=== PATIENT | male | born 1955 | race Caucasian/White ===

== ENCOUNTER 2019-09-13 10:44 | Emergency (ER) | payer MEDICARE, OTHER ==
[~2019-09-13] VITALS: Ht 170.2 cm; Wt 88.5 kg
--- OUTSIDE RECORDS SUMMARY | ~2019-09-13 | XMS | Encounter Summary ---
Demographics + + + | Address | [address] | | | [place] [address] | + + + | Home Phone | | + + + | Preferred Language | Unknown | + + + | Marital Status | | + + + | Confucianism Affiliation | Unknown | + + + | Race | Unknown | + + + | Ethnic Group | Unknown | + + + Author + + + | Author | [facility] | | | and [place] | + + + | Organization | [facility] | | | and [place] | + + + | Address | Unknown | + + + | Phone | Unavailable | + + + Support + + +---------+ + | Name | Relationship | Address | Phone | + + +---------+ + | Estrellita Peak | ECON | Unknown | | + + +---------+ + Care Team Providers + +------+ + | Care Jewelry Sales Name | Role | Phone | + +------+ + | Buddy Lynne MD | PCP | | + +------+ + Reason for Referral Diagnostic/Screening (Routine) +--------+--------+ + + + + | Status | Reason | Specialty | Diagnoses / | Referred By | Referred To | | | | | Procedures | Contact | Contact | +--------+--------+ + + + + | Closed | | Radiology | Diagnoses | Em | [facility] | | | | | Other chest | MD Jonh | [address] | | | | | pain Type | [address] | [place], | | | | | 2 diabetes | [address] | [place] | | | | | mellitus | [place], | [address] | | | | | without | [place] [address] | Phone: | | | | | complication | Phone: | [phone] | | | | | , without | [phone] | Fax: | | | | | long-term | Fax: | [phone] | | | | | current use | [phone] | | | | | | of insulin | | | | | | | (HCC) | | | | | | | Procedures | | | | | | | ECHO Stress | | | | | | | Test | | | | | | | Exercise ME | | | | | | | CV STRS TST | | | | | | | XERS&/OR RX | | | | | | | CONT ECG | | | | | | | W/O I&R ME | | | | | | | CARDIAC | | | | | | | STRESS | | | | | | | TST,INTERP/R | | | | | | | EPT ONLY ME | | | | | | | ECHO HEART | | | | | | | XTHORACIC, | | | | | | | STRESS/REST | | | +--------+--------+ + + + + Reason for Visit Diagnostic/Screening (Routine) +--------+--------+ + + + + | Status | Reason | Specialty | Diagnoses / | Referred By | Referred To | | | | | Procedures | Contact | Contact | +--------+--------+ + + + + | Closed | | Radiology | Diagnoses | Em, | [facility] | | | | | Other chest | MD Jonh | [address] | | | | | pain Type | [address] | [place], | | | | | 2 diabetes | [address] | [place] | | | | | mellitus | [place], | [address] | | | | | without | [place] [address] | Phone: | | | | | complication | Phone: | [phone] | | | | | , without | [phone] | Fax: | | | | | long-term | Fax: | [phone] | | | | | current use | [phone] | | | | | | of insulin | | | | | | | (HCC) | | | | | | | Procedures | | | | | | | ECHO Stress | | | | | | | Test | | | | | | | Exercise ME | | | | | | | CV STRS TST | | | | | | | XERS&/OR RX | | | | | | | CONT ECG | | | | | | | W/O I&R ME | | | | | | | CARDIAC | | | | | | | STRESS | | | | | | | TST,INTERP/R | | | | | | | EPT ONLY ME | | | | | | | ECHO HEART | | | | | | | XTHORACIC, | | | | | | | STRESS/REST | | | +--------+--------+ + + + + Encounter Details +--------+ + + + + | Date | Type | Department | Care Team | Description | +--------+ + + + + | 08/15/ | Hospital | [facility] | Jessicaradha Jonh, | Other chest pain; | | 2015 | Encounter | MED CTR ECHO [address] | [address] [facility] | Type 2 diabetes | | | | [address] [place] | [address] [place], | mellitus without | | | | [place] [address] | [place] [address] | complication, | | | | [phone] | [phone] | without long-term | | | | | | current use of | | | | | Tyson Vasquez, | insulin ([facility]) | | | | | Technologist | | +--------+ + + + + Social History + +-------+ +--------+------+ | Tobacco Use | Types | Packs/Day | Years | Date | | | | | Used | | + +-------+ +--------+------+ | Never Assessed | | | | | + +-------+ +--------+------+ + + + | Sex Assigned at | Date Recorded | | | | + + + | Not on file | | + + + + + + + | Job Start Date | Occupation | Industry | + + + + | Not on file | Not on file | Not on file | + + + + + + + + | Travel History | Travel Start | Travel End | + + + + + + | No recent travel history available. | + + documented as of this encounter Plan of Treatment + + +--------+ + + | Name | Type | Priori | Associated Diagnoses | Order Schedule | | | | ty | | | + + +--------+ + + | ECHO Stress Test | Echocardiog | Routin | Other chest pain | 1 Occurrences | | Exercise | steven | e | Type 2 diabetes | starting 08/15/2016 | | | | | mellitus without | until 08/15/2016 | | | | | complication, | | | | | | without long-term | | | | | | current use of | | | | | | insulin (HCC) | | + + +--------+ + + documented as of this encounter Visit Diagnoses + + | Diagnosis | + + | Other chest pain | + + | Type 2 diabetes mellitus without complication, without long-term current use of | | insulin (HCC) | + + documented in this encounter"
--- OUTSIDE RECORDS SUMMARY | ~2019-09-13 | XMS | Encounter Summary ---
Demographics + + + | Address | [address] | | | [place] [address] | + + + | Home Phone | | + + + | Preferred Language | Unknown | + + + | Marital Status | | + + + | Christian Affiliation | Unknown | + + + | Race | Unknown | + + + | Ethnic Group | Unknown | + + + Author + + + | Author | [facility] | | | and [place] | + + + | Organization | [facility] | | | and [place] | [...] Team Providers + +------+ + | Care Director Of Professional Services Name | Role | Phone | + [...] Closed | | Radiology | Diagnoses | [facility] | [facility] | | | | | Other chest | Cardiology | [address] | | | | | pain Type | [address] | [place], | | | | | 2 diabetes | [place] | [place] | | | | | mellitus | [place], [place] | [address] | | | | | without | [address] | Phone: | | | | | complication | Phone: | [phone] | | | | | , without | [phone] | Fax: | | | | | long-term | Fax: | [phone] | | | | | current use | [phone] | | | | | | of insulin | | | | | | | (HCC) | | | | | | | Procedures | | | | | | | ECHO Stress | | | | | | | Test | | | | | | | Exercise MD | | | | | | | ECHO HEART | | | | | | | XTHORACIC, | | | | | | | STRESS/REST | | | | | | | MD CV STRS | | | | | | | TST XERS&/OR | | | | | | | RX CONT ECG | | | | | | | W/O I&R MD | | | | | | | CARDIAC | | | | | | | STRESS | | | | | | | TST,INTERP/R | | | | | | | EPT ONLY | | | +--------+--------+ + + + + Reason for Visit Auth/Cert +--------+--------+ + + + + | Status | Reason | Specialty | Diagnoses / | Referred By | Referred To | | | | | Procedures | Contact | Contact | +--------+--------+ + + + + | | | | | | | +--------+--------+ + + + + Encounter Details +--------+ + + + + | Date | Type | Department | Care Team | Description | +--------+ + + + + | 08/29/ | Hospital | [facility] | Rolandaleradha Camryn, | Other chest pain; | | 2015 | Encounter | MED CTR ECHO [address] | [address] [facility] | Type 2 diabetes | | | | [address] [place] | [facility] | mellitus without | | | | [place] [address] | [place] [address] | complication, | | | | [phone] | [phone] | without long-term | | | | | | current use of | | | | | Tyson Vasquez, | insulin (HCC) | | | | | Technologist | [...] as of this encounter Plan of Treatment Not on filedocumented as of this encounter Procedures + +--------+ + + + | Procedure Name | Priori | Date/Time | Associated Diagnosis | Comments | | | ty | | | | + +--------+ + + + | ECHO STRESS TEST | Routin | 08/29/2016 | Other chest pain | Results for this | | EXERCISE | e | 11:30 AM | Type 2 diabetes | procedure are in the | | | | PST | mellitus without | results section. | | | | | complication, | | | | | | without long-term | | | | | | current use of | | | | | | insulin (HCC) | | + +--------+ + + + documented in this encounter Results ECHO Stress Test Exercise (08/29/2016 11:30 AM PST) + +-------+ + + + | Component | Value | Ref Range | Performed | Pathologist | | | | | At | Signature | + +-------+ + + + | [facility] | [facility] | | [facility] | | [facility] | [facility] | | | [facility] | | | | | | [facility] - | | | | | | IMAGING | | + +-------+ + + + + + | Specimen | + + | | + + + +---- + | Narrative | Per formed At | + +---- + | Stress | [facility] | | Echocardiography Report (SE) Demographics Patient Name PEAK | 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 | | | Procedure DateDate: 08/29/2016Start: 10:56 AM Technical Quality: | | | Adequate visualizationStudy Location: Echo LabIndications: Chest Pain | | | 786.51/R07.2.Patient Status: RoutineHeight: 68 inchesWeight: 193 | | | poundsBSA: 2.01 m^2BMI: 29.35 kg/m^2Rhythm: Normal Sinus Rhythm Rest | | | ECG Normal sinus rhythm. Resting EF:07:41 % Stress Stress Type: | | | Exercise Peak HR: 136 bpm | | | HR BP Product: 65930 Peak BP: 196/72 mmHg | | | Max Exercise: 7.4 METS Predicted HR: 160 bpm | | | Stress EF: 70 % % of predicted HR: 85 | | | Exercise Effort: Fair Test | | | Duration: 07:41 min Reason for Termination: Target heart rate | | | Perceived Exertion: 2 Stress Interpretation Appropriate hemodynamic | | | response to exercise. No significant ST T wave changes with exercise. | | | EKG portion is negative for ischemia by diagnostic criteria. Results | | | Global LVEF (rest): Normal (LVEF >50%) Global LVEF (stress): Appears | | | preserved ECG Normal sinus rhythm Arrhythmias No rhythm | | | abnormality. Symptoms No cardiovascular symptoms with maximal | | | exercise. ConclusionsSummaryA normal 2-D echo/M-mode/Doppler/color | | | Doppler study.No evidence of myocardial ischemia.Normal exercise | | | stress echo. | | | Signature | | | | | | AM | | | -------- FindingsMitral ValveStructurally normal mitral valve without | | | significant stenosis orregurgitation.Aortic ValveAortic valve is | | | trileaflet without significant stenosis or regurgitation.Tricuspid | | | ValveStructurally normal tricuspid valve without significant stenosis | | | orregurgitation.Pulmonic ValveStructurally normal pulmonic valve | | | without significant stenosis orregurgitation.Left AtriumNormal left | | | atrium.Left VentricleLeft ventricle is normal in size and function. | | | Ejection fraction isestimated at 55 %.Right AtriumNormal right | | | atrium.Right VentricleNormal right ventricular structure and function. | | | MiscellaneousNormal aortic root.The IVC appears normal. Structures | | | Left Ventricle | | | Peak HR: 136 bpm HR BP Product: 64005 | | | Peak BP: 196/72 mmHg Max Exercise: 7.4 METS | | | Predicted HR: 160 bpm Stress EF: 70 % | | | % of predicted HR: 85 Exercise Effort: Fair | | | Test Duration: 07:41 min | | | Reason for Termination: Target heart rate | | | Perceived Exertion: 2 | | | | | | Stress Interpretation | | | | | | Appropriate hemodynamic response to exercise. No significant ST T wave | | | changes with exercise. EKG portion is negative for ischemia by diagnostic | | | criteria. | | | | | | Results | | | | | | Global LVEF (rest): Normal (LVEF >50%) | | | | | | Global LVEF (stress): Appears preserved | | | | | | ECG | | | Normal sinus rhythm | | | | | | Arrhythmias | | | No rhythm abnormality. | | | | | | Symptoms | | | No cardiovascular symptoms with maximal exercise. | | | | | |Conclusions | | |Summary | | |A normal 2-D echo/M-mode/Doppler/color Doppler study. | | |No evidence of myocardial ischemia. | | |Normal exercise stress echo. | | | | | |Signature | | | | | | Electronically signed by CAMRYN FRAZIER MD(Interpreting physician) on | | | 08/29/2016 11:56 AM | | | | | | | | |Findings | | |Mitral Valve | | |Structurally normal mitral valve without significant stenosis or | | |regurgitation. | | |Aortic Valve | | |Aortic valve is trileaflet without significant stenosis or regurgitation. | | |Tricuspid Valve | | |Structurally normal tricuspid valve without significant stenosis or | | |regurgitation. | | |Pulmonic Valve | | |Structurally normal pulmonic valve without significant stenosis or | | |regurgitation. | | |Left Atrium | | |Normal left atrium. | | |Left Ventricle | | |Left ventricle is normal in size and function. Ejection fraction is | | |estimated at 55 %. | | |Right Atrium | | |Normal right atrium. | | |Right Ventricle | | |Normal right ventricular structure and function. | | | | | |Miscellaneous | | |Normal aortic root. | | |The IVC appears normal. 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 | | | | Procedure Date | | Date: 08/29/2016Start: 10:56 AM | | | | Technical Quality: Adequate visualizationStudy Location: Echo Lab | | Indications: Chest Pain 786.51/R07.2. | | Patient Status: Routine | | Height: 68 inchesWeight: 193 poundsBSA: 2.01 m^2BMI: 29.35 kg/m^2 | | Rhythm: Normal Sinus Rhythm | | | | Rest | | | | ECG | | Normal sinus rhythm. | | | | Resting EF:07:41 % | | | | Stress | | | | Stress Type: Exercise | | | | Peak HR: 136 bpm HR BP Product: 63357 | | Peak BP: 196/72 mmHg Max Exercise: 7.4 METS | | Predicted HR: 160 bpm Stress EF: 70 % | | % of predicted HR: 85 Exercise Effort: Fair | | Test Duration: 07:41 min | | Reason for Termination: Target heart rate | | Perceived Exertion: 2 | | | | Stress Interpretation | | | | Appropriate hemodynamic response to exercise. No significant ST T wave | | changes with exercise. EKG portion is negative for ischemia by diagnostic | | criteria. | | | | Results | | | | Global LVEF (rest): Normal (LVEF >50%) | | | | Global LVEF (stress): Appears preserved | | | | ECG | | Normal sinus rhythm | | | | Arrhythmias | | No rhythm abnormality. | | | | Symptoms | | No cardiovascular symptoms with maximal exercise. | | | | Conclusions | | Summary | | A normal 2-D echo/M-mode/Doppler/color Doppler study. | | No evidence of myocardial ischemia. | | Normal exercise stress echo. | | | | Signature | | | | Electronically signed by RAOUL SAHUInterpreting physician) on | | 08/29/2016 11:56 AM | | | | | | Findings | | Mitral Valve | | Structurally normal mitral valve without significant stenosis or | | regurgitation. | | Aortic Valve | | Aortic valve is trileaflet without significant stenosis or regurgitation. | | Tricuspid Valve | | Structurally normal tricuspid valve without significant stenosis or | | regurgitation. | | Pulmonic Valve | | Structurally normal pulmonic valve without significant stenosis or | | regurgitation. | | Left Atrium | | Normal left atrium. | | Left Ventricle | | Left ventricle is normal in size and function. Ejection fraction is | | estimated at 55 %. | | Right Atrium | | Normal right atrium. | | Right Ventricle | | Normal right ventricular structure and function. | | | | Miscellaneous | | Normal aortic root. | | The IVC appears normal. | | | | Structures | | | | Left Ventricle | + + + + + + + | Performing | Address | City/State/Zipcode | Phone Number | | Organization | | | | + + + + + | [facility] | [address] | [place] | [phone] | | [facility] | | [address] | | | - IMAGING | | | | + + + + + documented in this encounter Visit Diagnoses + + | Diagnosis | + + | Other chest pain | + + | Type 2 diabetes mellitus without complication, without long-term current use of | | insulin (HCC) | + + documented in this encounter"
--- OUTSIDE RECORDS SUMMARY | ~2019-09-13 | XMS | Encounter Summary ---
Demographics + + + | Address | [address] | | | [place] [address] | + + + | Home Phone | | + + + | Preferred Language | Unknown | + + + | Marital Status | | + + + | Yazidism Affiliation | Unknown | + + + | Race | Unknown | + + + | Ethnic Group | Unknown | + + + Author + + + | Author | [facility] | | | and [place] | + + + | Organization | [facility] | | | and [place] [...] Team Providers + +------+ + | Care Special Education Kindergarten Teacher Name | Role | Phone | + [...] Other chest | Cardiology | [address] | | | | | pain Type | [address] | [place], | | | | | 2 diabetes | [place] | [place] | | | | | mellitus | [place], [place] | [address] | | | | | without | [address] | Phone: | | | | | complication | Phone: | [phone] | | | | | , without | [phone] | Fax: | | | | | long-term | Fax: | [phone] | | | | | current use | [phone] | | | | | | of insulin | | | | | | | (HCC) | | | | | | | Procedures | | | | | | | ECHO Stress | | | | | | | Test | | | | | | | Exercise MT | | | | | | | ECHO HEART | | | | | | | XTHORACIC, | | | | | | | STRESS/REST | | | | | | | MT CV STRS | | | | | | | TST XERS&/OR | | | | | | | RX CONT ECG | | | | | | | W/O I&R MT | | | | | | | [...] + + + + | 08/15/ | Transcribed | [facility] [place] | Buddy Lynne, | Other chest pain | | 2016 | Orders | CARDIOLOGY [address] | MD Kalina LundBrittany | (Primary Dx); Type 2 | | | | [place], | Dr. 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 | | | MARK EUBANKS [facility] Age 60 year(s) | | | Interpreting KARIN COWAN | | | 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 CAMRYN FRAZIER, | | | MD Gender Male Nurse Procedure Type of | [...] bpm | | | HR BP Product: 83735 Peak BP: 196/72 mmHg | | | [...] Peak HR: 136 bpm HR BP Product: 08696 | | | Peak BP: 196/72 mmHg [...] | | | | Electronically signed by ACMRYN FRAZIER MD(Interpreting physician) on | | | [...] Number | | | | Patient Number [id number] Date of Study 08/29/2016 | | | | Visit Number [id number] | | | | Referring Physician JOHN Rudd | | Number | | | | 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 | [address] | [place] | [phone] | | [facility] | | [address] | | | - IMAGING | | | | + + + + + documented in this encounter Visit Diagnoses + + | Diagnosis | + + | Other chest pain - Primary | + + | Type 2 diabetes mellitus without complication, without long-term current use of | | insulin (HCC) | + + documented in this encounter"
--- OUTSIDE RECORDS SUMMARY | ~2019-09-13 | XMS | Encounter Summary ---
Demographics + + + | Address | [address] | | | [place] [address] | + + + | Home Phone | | + + + | Preferred Language | Unknown | + + + | Marital Status | | + + + | Anabaptist Affiliation | Unknown | + + + | Race | Unknown | + + + | Ethnic Group | Unknown | + + + Author + + + | Author | [facility] | | | and [place] | + + + | Organization | [facility] | | | and [place] [...] Team Providers + +------+ + | Care Oracle Iam Consultant Name | Role | Phone | + [...] chest | MD Jonh | [address] | | | | | pain Type | [address] | [place], | | | | | 2 diabetes | [address] | [place] | | | | | mellitus | [place], | [address] | | | | | without | [place] [address] | Phone: | | | | | complication | Phone: | [phone] | | | | | , without | [phone] | Fax: | | | | | long-term | Fax: | [phone] | | | | | current use | [phone] | | | | | | of insulin | | | | | | | (HCC) | | | | | | | Procedures | | | | | | | ECHO Stress | | | | | | | Test | | | | | | | Exercise MO | | | | | | | CV STRS TST | | | | | | | XERS&/OR RX | | | | | | | CONT ECG | | | | | | | W/O I&R MO | | | | | | | CARDIAC | | | | | | | STRESS | | | | | | | TST,INTERP/R | | | | | | | EPT ONLY MO | | | | | | | ECHO HEART | | | | | | | XTHORACIC, | | | | | | | STRESS/REST | | | +--------+--------+ + + + + Encounter Details +--------+ + + + + | Date | Type | Department | Care Team | Description | +--------+ + + + + | 06/27/ | Transcribed | [facility] [place] | Buddy Lynne, | Other chest pain | | 2016 | Orders | CARDIOLOGY [address] | MD Kalina LundMakah | (Primary Dx); Type 2 | | | | [place], | Dr. [place], [place] | diabetes mellitus | | | | [place] [address] | [address] | without | | | | [phone] | | complication, | | | | [...] | Routin | Other chest pain | Expected: | | Exercise | steven | e | Type 2 diabetes | 06/27/2016, Expires: | | | | | mellitus without | 06/27/2017 | | | | | complication, | [...]
--- OUTSIDE RECORDS SUMMARY | ~2019-09-13 | XMS | Clinical Summary ---
Demographics + + + | Address | [address] | | | [place] [address] | + + + | Home Phone | | + + + | Preferred Language | Unknown | + + + | Marital Status | | + + + | Mandaeism Affiliation | Unknown | + + + | Race | Unknown | + + + | Ethnic Group | Unknown | + + + Author + + + | Author | [facility] | | | and [place] | + + + | Organization | [facility] | | | and [place] [...] Team Providers + +------+ + | Care Ear Flap Binder Name | Role | Phone | + +------+ + | Buddy Lynne MD | PCP | | + +------+ + Allergies Not on File Medications Not on file Active Problems + + + | Problem | Noted Date | + + + | Other chest pain | 06/27/2016 | + + + | Type 2 diabetes mellitus without complication, without long-term | 06/27/2016 | | current use of insulin | | + + + Social History + +-------+ [...] recent travel history available. | + + Last Filed Vital Signs Not on file Plan of Treatment + + + + + | Health Maintenance | Due Date | Last Done | Comments | + + + + + | Vaccine: | | | | | Dtap/Tdap/Td (1 - | 7 | | | | Tdap) | | | | + + + + + | Vaccine: Zoster (1 | | | | | of 2) | 6 | | | + + + + + | Vaccine: Influenza | | | | | (#1) | 9 | | | + + + + + Results Not on filefrom Last 3 Months Insurance + +--------+ +--------+ +---------+--------+ | Payer | Benefi | Subscriber | Effect | Phone | Address | Type | | | t Plan | ID | fabricio | | | | | | / | | Dates | | | | | | Group | | | | | | + +--------+ +--------+ +---------+--------+ | [employer] | [employer] | [id number] | 06/27/ | | | Indemn | | | NS | | 2015-P | | | ity | | | ADMIN | | resent | | | | | | [place] | | | | | | | | [place] | | | | | | + +--------+ +--------+ +---------+--------+ | [employer] | [place] | [id number] | | | | Indemn | | | CHOICE | | 016-Pr | | | ity | | | PC3 | | esent | | | | + +--------+ +--------+ +---------+--------+ | [employer] | HEALTH | [id number] | 06/27/ | | | Indemn | | SERVICES | NET | | 2016-P | | | ity | | | [place] | | resent | | | | | | NS | | | | | | | | CHOICE | | | | | | + +--------+ +--------+ +---------+--------+ | [place] | MEDICA | [id number] | 08/12/ | [phone] | | Medica | | | ID [place] | | 2016-P | 2 | | id | | | PLUS | | resent | | | | + +--------+ +--------+ +---------+--------+ + +--------+ +--------+ + + | Guarantor Name | Accoun | Relation to | Date | Phone | Billing Address | | | t Type | Patient | of | | | | | | | | | | + +--------+ +--------+ + + | Elan Del Toro | Person | Self [birth year] | [address] | | | al/Fam | | 1956 | [phone] | [place] [address] | | | [place] | | | [place] (Home) | | + +--------+ +--------+ + + Advance Directives + + + + + | Type | Date Recorded | Patient | Explanation | | | | 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
[~2019-09-13 10:44] MED LIST: BUPROPION HCL100 MG PO; KEFLEX500 MG PO; LANTUS100 UNITS/ SUB-Q; LATANOPROST2.5 ML OPTH; LISINOPRIL10 MG PO; MELOXICAM15 MG PO; METFORMIN HCL1000 MG PO; METOPROLOL SUCC50 MG PO; MOBIC7.5 MG PO; NORCO 5-325 TA1 EACH PO; NOVOLOG100 UNITS/ IV; PYRIDIUM200 MG PO
--- NOTE | 2019-09-16 19:25 | EKG ---
[facility] [address] [facility] [place] [address] Signed Sinus rhythm with premature atrial complexes Left axis deviation Abnormal ECG No previous ECGs available Confirmed by RAUL MADERA MD ([id number]) on 09/16/2019 7:25:56 PM Electronically Signed By: RAUL MADERA MD 09/16/19 1925 PATIENT NAME: ROMERO CHRISTIE AGUSTO Electrocardiogram DATE OF : 55 PHYSICIAN: RAUL MADERA MD REPORT #: [id number] REPORT IS CONFIDENTIAL AND NOT TO BE RELEASED WITHOUT AUTHORIZATION
== END 2019-09-13 12:38 | disposition home or self-care (01) ==
LOC: ED 10:44
DX: R07.89 Other chest pain (principal); I10 Essential (primary) hypertension; E11.9 Type 2 diabetes mellitus without complications; F32.9 Major depressive disorder, single episode, unspecified; Z79.899 Other long term (current) drug therapy; Z79.4 Long term (current) use of insulin
CPT/HCPCS: 71046; 80053; 84484; 85025; 85379; 93005; 93010; 99285-25

== ENCOUNTER 2023-05-16 12:18 | Observation (INO) | payer OTHER ==
[~2023-05-16] VITALS: Ht 170.2 cm; Wt 81.1 kg
[2023-05-16 12:58] LABS: BASOPHILS 0.9 % (0-2); EOSINOPHILS 2.9 % (0-6); HEMATOCRIT 46.2 % (35.0-50.0); HEMOGLOBIN 15.6 g/dL (12.0-18.0); LYMPHOCYTES 10.7 % (24-44); MCH 29.7 (27-36); MCHC 33.8 g/dl (30-36); MCV 87.7 fl (81-99); MONOCYTES 13.8 % (0-12); NEUTROPHILS 71.7 % (39-80); PLATELET COUNT 255 K/uL (140-440); RBC 5.27 M/ul (4.3-5.7); RDW 14.5 (10.5-15.0)
[2023-05-16 13:11] LABS: ALBUMIN/GLOBULIN RATIO 0.98 (1.1-2.4); ANION GAP 15.8 (7-21); BILIRUBIN, TOTAL 1.3 ng/dL (0.2-1.0); BUN/CREATININE RATIO 11.66 (6.0-28.6); CALCIUM 9.1 mg/dL (8.5-10.1); CREATININE, SERUM 1.2 mg/dL (0.70-1.30); POTASSIUM 3.8 mmol/L (3.5-5.1); PROTEIN, TOTAL 8.1 g/dL (6.4-8.2)
[2023-05-16 13:14] LABS: LACTIC ACID, BLOOD 3.1 mmol/L (0.4-2.0)
[2023-05-16 13:36] LABS: INFLUENZA B NAA NEGATIVE (NEGATIVE); RESPIRATORY SYNCYTIAL VIR NAA NEGATIVE (NEGATIVE)
[2023-05-16 15:22] VITALS: BP 127/64
[2023-05-16 17:18] VITALS: BP 127/67
[2023-05-16 19:28] LABS: BILIRUBIN, URINE NEGATIVE (negative); BLOOD/HGB, URINE TRACE-I (Negative); KETONE, URINE NEGATIVE (Negative); LEUK ESTERASE, URINE NEGATIVE (negative); NITRITE, URINE NEGATIVE (negative)
[2023-05-16 19:35] LABS: BACTERIA, URINE NONE SEEN /hpf (negative); CASTS, URINE NONE SEEN \\lpf; COLLECTION TYPE, URINE CLEAN CATCH; CRYSTALS, URINE NONE SEEN (0-1+); EPITHELIAL CELLS, URINE NONE SEEN /lpf (0-1+); RED BLOOD CELLS, URINE 0-1 /hpf (0-5); REFLEX CULTURE, URINE No (No); WHITE BLOOD CELLS, URINE 0-1 /HPF (0-5)
[2023-05-16 21:42] VITALS: BP 136/88
[2023-05-17 02:52] VITALS: BP 138/65
[2023-05-17 05:41] LABS: BASOPHILS 0.8 % (0-2); EOSINOPHILS 0.1 % (0-6); HEMATOCRIT 42.5 % (35.0-50.0); HEMOGLOBIN 14.3 g/dL (12.0-18.0); LYMPHOCYTES 17.5 % (24-44); MCH 29.7 (27-36); MCHC 33.7 g/dl (30-36); MCV 88.2 fl (81-99); MONOCYTES 20.2 % (0-12); NEUTROPHILS 61.4 % (39-80); PLATELET COUNT 214 K/uL (140-440); RBC 4.82 M/ul (4.3-5.7); RDW 14.3 (10.5-15.0)
[2023-05-17 05:46] VITALS: BP 133/71
[2023-05-17 05:48] LABS: BUN/CREATININE RATIO 16.19 (6.0-28.6); CALCIUM 8.5 mg/dL (8.5-10.1); CREATININE, SERUM 1.05 mg/dL (0.70-1.30)
[2023-05-17 08:51] VITALS: BP 117/62
[2023-05-17 12:12] VITALS: BP 140/66
== END 2023-05-17 13:20 | disposition home or self-care (01) ==
LOC: ED 12:18 → MS 12:20
PROVIDERS: Emergency Medicine; ADMIT Family Medicine; ATTEND Family Medicine
DX: J96.01 Acute respiratory failure with hypoxia (principal); E11.9 Type 2 diabetes mellitus without complications; J45.909 Unspecified asthma, uncomplicated; U07.1 COVID-19; F32.9 Major depressive disorder, single episode, unspecified; I10 Essential (primary) hypertension; Z79.84 Long term (current) use of oral hypoglycemic drugs; Z79.4 Long term (current) use of insulin
CPT/HCPCS: 36415; 71045; 80048; 80053; 81001; 83036; 83605; 85025; 87040; 87502; 94762; 96365; 96366; 96367; 96368; 96375; 96376; 97116; 97161; 99285-25; A9270; C9803; G0378; J0248; J0456; J0696; J1100; J1815; J7030; J7050; J7060; U0002

== ENCOUNTER 2023-10-25 06:47 | Inpatient (IN) | payer OTHER, MEDICARE ==
[~2023-10-25] VITALS: Ht 170.2 cm; Wt 80.1 kg
[~2023-10-25 06:47] MED LIST changes: -LANTUS100 UNITS/ SUB-Q; -LATANOPROST2.5 ML OPTH; +LATANOPROST2.5 ML OU; -MELOXICAM15 MG PO; +MELOXICAM7.5 MG PO; +METOPROLOL SUC100 MG PO; -METOPROLOL SUCC50 MG PO; +SEMGLEE (Y100 UNIT/1 SUB-Q
[2023-10-25] MEDS ORDERED: GABAPENTIN600 MG PO (06:58)
[2023-10-25] MEDS ORDERED: LACTATED RINGER'S 1,000 ML IV ONE ×2 (07:00→07:45)
[2023-10-25] MEDS ORDERED: CRESTOR10 MG PO (07:00)
[2023-10-25] MEDS ORDERED: CEFTRIAXONE/SODIUM CHLORIDE 2 GM/100 ML PIGGYBACK IV ONE (07:00)
[2023-10-25] MEDS ORDERED: PREDNISONE20 MG PO (07:01)
[2023-10-25] MEDS ORDERED: JARDIANCE25 MG PO (07:01)
[2023-10-25 07:09] LABS: BASOPHILS 0.2 % (0-2); EOSINOPHILS 1.2 % (0-6); HEMATOCRIT 46.2 % (35.0-50.0); HEMOGLOBIN 15.8 g/dL (12.0-18.0); LYMPHOCYTES 1.9 % (24-44); MCH 31.1 (27-36); MCHC 34.2 g/dl (30-36); MONOCYTES 9.9 % (0-12); NEUTROPHILS 86.8 % (39-80); PLATELET COUNT 246 K/uL (140-440); RBC 5.08 M/ul (4.3-5.7); RDW 13.9 (10.5-15.0)
[2023-10-25] MEDS ORDERED: ACETAMINOPHEN 500 MG TAB PO ONE (07:15)
[2023-10-25 07:32] LABS: LACTIC ACID, BLOOD 2.3 mmol/L (0.4-2.0)
[2023-10-25 07:34] LABS: ALBUMIN 3.2 g/dL (3.4-5.0); ALBUMIN/GLOBULIN RATIO 0.8 (1.1-2.4); ANION GAP 12.5 (7-21); BILIRUBIN, TOTAL 1.5 ng/dL (0.2-1.0); BUN/CREATININE RATIO 14.81 (6.0-28.6); CALCIUM 8.4 mg/dL (8.5-10.1); CREATININE, SERUM 1.35 mg/dL (0.70-1.30); POTASSIUM 4.5 mmol/L (3.5-5.1); PROTEIN, TOTAL 7.2 g/dL (6.4-8.2)
[2023-10-25 07:35] LABS: MAGNESIUM 1.5 mg/dL (1.8-2.4)
[2023-10-25 07:36] LABS: TSH, 3RD GENERATION 2.146 uIU/mL (0.358-3.740)
[2023-10-25 07:46] LABS: BILIRUBIN, URINE NEGATIVE (negative); BLOOD/HGB, URINE TRACE-I (Negative); KETONE, URINE NEGATIVE (Negative); LEUK ESTERASE, URINE NEGATIVE (negative); NITRITE, URINE NEGATIVE (negative)
[2023-10-25 07:49] LABS: INFLUENZA B NAA NEGATIVE (NEGATIVE); RESPIRATORY SYNCYTIAL VIR NAA NEGATIVE (NEGATIVE)
[2023-10-25 07:56] LABS: EPITHELIAL CELLS, URINE 0 /lpf (0-1+)
[2023-10-25 08:03] LABS: REFLEX CULTURE, URINE No (No)
[2023-10-25] MEDS ORDERED: MAGNESIUM SULFATE 2 GM/50 ML BAG IV ONE (08:15)
[2023-10-25] MEDS ORDERED: ENOXAPARIN SODIUM 40 MG/0.4 ML SYR SUB-Q SCH (10:33)
[2023-10-25 11:35] VITALS: BP 126/70
[2023-10-25] MEDS ORDERED: PHARMACY RENAL DOSE ADJUSTMENT 1 DOSE MISC PO SCH (12:00)
[2023-10-25] MEDS ORDERED: ACETAMINOPHEN 325 MG TAB PO PRN (13:30)
[2023-10-25] MEDS ORDERED: GLUCAGON,HUMAN RECOMBINANT 1 MG/ML VIAL SUB-Q PRN (13:45)
[2023-10-25] MEDS ORDERED: IBLOOD GLUCOSE TEST STRIP 1 EA TEST XX PRN (13:45)
[2023-10-25] MEDS ORDERED: DEXTROSE 50% 50 ML SYR IV PRN ×2 (13:45)
[2023-10-25] MEDS ORDERED: DEXTROSE 5% 1,000 ML IV PRN (13:45)
[2023-10-25 14:26] VITALS: BP 114/59
[2023-10-25] MEDS ORDERED: FLUTICASONE-SA1 EAC4 INH (15:27)
[2023-10-25] MEDS ORDERED: CARBOXYMETHYLCE15 ML OU (15:30)
[2023-10-25] MEDS ORDERED: OZEMPIC1 MG/0.71 SUB-Q (15:32)
[2023-10-25] MEDS ORDERED: VENTOLIN HFA18 GM INH (15:37)
[2023-10-25] MEDS ORDERED: INSULIN LISPRO 100 UNIT/ML ML SUB-Q SCH (17:00)
[2023-10-25] MEDS ORDERED: IBLOOD GLUCOSE TEST STRIP 1 EA TEST VI SCH (17:00)
[2023-10-25] MEDS ORDERED: ARTHRITIS PAIN650 M3 PO (17:14)
[2023-10-25] MEDS ORDERED: CALCIUM 500+D1 EAC2 PO (17:17)
[2023-10-25] MEDS ORDERED: CENTRUM ADULT80 MCG PO (17:18)
[2023-10-25] MEDS ORDERED: BRAIN HEALTH PO (17:18)
[2023-10-25 18:05] VITALS: BP 114/63
[2023-10-25 18:32] VITALS: BP 114/63
[2023-10-25 21:04] VITALS: BP 132/65
[2023-10-25 21:23] VITALS: BP 127/67
[2023-10-25] MEDS ORDERED: predniSONE 20 MG TAB PO SCH (21:30)
[2023-10-25] MEDS ORDERED: GABAPENTIN 300 MG CAP PO SCH (21:30)
[2023-10-26] VITALS (10 sets, daily range): BP systolic 130–157; BP diastolic 60–76
[2023-10-26 05:20] LABS: BASOPHILS 0.4 % (0-2); EOSINOPHILS 0.3 % (0-6); HEMATOCRIT 42.9 % (35.0-50.0); HEMOGLOBIN 14.8 g/dL (12.0-18.0); LYMPHOCYTES 10.8 % (24-44); MCH 31.2 (27-36); MCHC 34.5 g/dl (30-36); MCV 90.6 fl (81-99); MONOCYTES 4.4 % (0-12); NEUTROPHILS 84.1 % (39-80); PLATELET COUNT 231 K/uL (140-440); RBC 4.74 M/ul (4.3-5.7); RDW 13.9 (10.5-15.0)
[2023-10-26 05:34] LABS: ALBUMIN 2.9 g/dL (3.4-5.0); ALBUMIN/GLOBULIN RATIO 0.73 (1.1-2.4); ANION GAP 17.4 (7-21); BILIRUBIN, TOTAL 1.7 ng/dL (0.2-1.0); BUN/CREATININE RATIO 25.8 (6.0-28.6); CALCIUM 8.4 mg/dL (8.5-10.1); CREATININE, SERUM 0.93 mg/dL (0.70-1.30); POTASSIUM 4.4 mmol/L (3.5-5.1); PROTEIN, TOTAL 6.9 g/dL (6.4-8.2)
[2023-10-26] MEDS ORDERED: CEFTRIAXONE/SODIUM CHLORIDE 2 GM/100 ML PIGGYBACK IV SCH (09:00)
[2023-10-26] MEDS ORDERED: METOPROLOL SUCCINATE 100 MG TABCR PO SCH (09:00)
[2023-10-26] MEDS ORDERED: AZITHROMYCIN 250 MG TAB PO SCH (09:00)
[2023-10-26] MEDS ORDERED: MELOXICAM 7.5 MG TAB PO SCH (17:00)
[2023-10-27 05:34] VITALS: BP 137/79
[2023-10-27 05:36] LABS: BASOPHILS 0.5 % (0-2); HEMOGLOBIN 14.7 g/dL (12.0-18.0); LYMPHOCYTES 17.3 % (24-44); MCH 31.7 (27-36); MCV 90.7 fl (81-99); NEUTROPHILS 68.2 % (39-80); PLATELET COUNT 253 K/uL (140-440); RBC 4.63 M/ul (4.3-5.7); RDW 14.1 (10.5-15.0)
[2023-10-27 05:54] LABS: ALBUMIN 2.8 g/dL (3.4-5.0); ALBUMIN/GLOBULIN RATIO 0.72 (1.1-2.4); BILIRUBIN, TOTAL 0.9 ng/dL (0.2-1.0); BUN/CREATININE RATIO 28.08 (6.0-28.6); CALCIUM 8.7 mg/dL (8.5-10.1); CREATININE, SERUM 0.89 mg/dL (0.70-1.30); PROTEIN, TOTAL 6.7 g/dL (6.4-8.2)
[2023-10-27 10:24] VITALS: BP 121/72
[2023-10-27 10:25] VITALS: BP 121/72
[2023-10-27] MEDS ORDERED: SEMGLEE (Y100 UNIT/1 SUB-Q (10:47)
[2023-10-27] MEDS ORDERED: AZITHROMYCIN500 MG PO (10:50)
[2023-10-27] MEDS ORDERED: CEFUROXIME500 MG PO (10:52)
[2023-10-27 13:02] VITALS: BP 139/68
[2023-10-27 13:03] VITALS: BP 139/68
--- NOTE | 2023-10-28 22:55 | EKG ---
[facility] [address] [facility] [place] [address] Signed Sinus tachycardia with frequent PVC's Right bundle branch block Right axis deviation Poor R wave progression Confirmed by Blanco Milton M.D. ([id number]) on 10/28/2023 10:55:50 PM Electronically Signed By: BLANCO MILTON MD 10/28/23 2255 PATIENT NAME: ROMERO CHRISTIE AGUSTO Electrocardiogram DATE OF : 55 PHYSICIAN: BLANCO MILTON MD REPORT #: [id number] REPORT IS CONFIDENTIAL AND NOT TO BE RELEASED WITHOUT AUTHORIZATION
--- NOTE | 2023-10-28 22:57 | EKG ---
[facility] [address] [facility] [place] [address] Signed Sinus tachycardia Right bundle branch block Right axis deviation Poor R wave progression Confirmed by Blanco Milton M.D. ([id number]) on 10/28/2023 10:57:22 PM Electronically Signed By: BLANCO MILTON MD 10/28/23 2257 PATIENT NAME: ROMERO CHRISTIE Electrocardiogram DATE OF : 55 PHYSICIAN: BLANCO MILTON MD REPORT #: [id number] REPORT IS CONFIDENTIAL AND NOT TO BE RELEASED WITHOUT AUTHORIZATION
== END 2023-10-27 13:15 | disposition home or self-care (01) | DRG 194 ==
LOC: ED 06:47 → MS 10:26
PROVIDERS: Internal Medicine; ADMIT Internal Medicine; ATTEND Internal Medicine
DX: J18.9 Pneumonia, unspecified organism (principal); N39.0 Urinary tract infection, site not specified; D86.0 Sarcoidosis of lung; K59.00 Constipation, unspecified; E11.9 Type 2 diabetes mellitus without complications; R31.0 Gross hematuria; M54.50 Low back pain, unspecified; I10 Essential (primary) hypertension; Z66 Do not resuscitate; M19.90 Unspecified osteoarthritis, unspecified site; H40.9 Unspecified glaucoma; F32.A Depression, unspecified; Z98.49 Cataract extraction status, unspecified eye; Z79.84 Long term (current) use of oral hypoglycemic drugs; Z79.899 Other long term (current) drug therapy; Z79.4 Long term (current) use of insulin; Z79.51 Long term (current) use of inhaled steroids; Z11.52 Encounter for screening for COVID-19; Z99.81 Dependence on supplemental oxygen
CPT/HCPCS: 36415; 71045; 71250; 74018; 80053; 81001; 83036; 83605; 83735; 83880; 84443; 84484; 85025; 87040; 87088; 87502; 93005; 93010; 97116; 97161; A9270; J0696; J1650; J1815; J3475; J7121; J7512; U0002

== ENCOUNTER 2025-02-07 11:05 | Emergency (ER) | payer OTHER, MEDICARE ==
[~2025-02-07] VITALS: Ht 170.2 cm; Wt 74.0 kg
[~2025-02-07 11:05] MED LIST changes: +ARTHRITIS PAIN650 M3 PO; +AZITHROMYCIN500 MG PO; +BRAIN HEALTH PO; +CALCIUM 500+D1 EAC2 PO; +CARBOXYMETHYLCE15 ML OU; +CEFUROXIME500 MG PO; +CENTRUM ADULT80 MCG PO; +CRESTOR10 MG PO; +FLUTICASONE-SA1 EAC4 INH; +GABAPENTIN600 MG PO; +JARDIANCE25 MG PO; +OZEMPIC1 MG/0.71 SUB-Q; +PREDNISONE20 MG PO; +VENTOLIN HFA18 GM INH
--- OUTSIDE RECORDS SUMMARY | 2025-02-07 11:10 | XMS ---
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 Fred has no Care Guidelines for this patient. Huy VISIT COUNT (12 MO.) 1 [facility] [place] (Yancy Haines) TOTAL 2 NOTE: Visits indicate total known visits. ED/C VISIT TRACKING (12 MO.) 02/07/2025 11:06 [facility] [place] TYPE: Emergency COMPLAINT: - [facility] DIAGNOSES: - Contusion of left hip, initial encounter - Contusion of scalp, initial encounter - fall INPATIENT VISIT TRACKING (12 MO.) No inpatient visits to display in this time frame [id number]
[2025-02-07] MEDS ORDERED: ALBUTEROL/IPRATROPIUM 3 ML NEB INH ONE (12:45)
[2025-02-07 13:02] LABS: BASOPHILS 0.5 % (0.2-1.2); EOSINOPHILS 0.2 % (0.8-7.0); HEMATOCRIT 39.1 % (40.1-51.0); HEMOGLOBIN 12.6 g/dL (13.7-17.5); LYMPHOCYTES 4.6 % (21.8-53.1); MCH 29.8 PG (25.7-32.2); MCHC 32.2 g/dL (32.3-36.5); MCV 92.4 fL (79.0-92.2); MONOCYTES 7.3 % (5.3-12.2); NEUTROPHILS 86.2 % (34.0-67.9); PLATELET COUNT 411 K/uL (163-337); RBC 4.23 M/uL (4.63-6.08)
[2025-02-07 13:26] LABS: ALBUMIN 2.7 g/dL (3.4-5.0); ALBUMIN/GLOBULIN RATIO 0.55 (1.1-2.4); ANION GAP 20.2 (7-21); BILIRUBIN, TOTAL 0.9 mg/dL (0.2-1.0); BUN/CREATININE RATIO 22.44 (6.0-28.6); CALCIUM 9.3 mg/dL (8.5-10.1); CREATININE, SERUM 0.98 mg/dL (0.70-1.30); POTASSIUM 4.2 mmol/L (3.5-5.1); PROTEIN, TOTAL 7.6 g/dL (6.4-8.2)
[2025-02-07 14:22] LABS: BILIRUBIN, URINE NEGATIVE (negative); BLOOD/HGB, URINE TRACE-I (Negative); KETONE, URINE SMALL (Negative); LEUK ESTERASE, URINE NEGATIVE (negative); NITRITE, URINE NEGATIVE (negative)
[2025-02-07 14:28] LABS: BACTERIA, URINE RARE /hpf (negative); CASTS, URINE NONE SEEN \\lpf; COLLECTION TYPE, URINE CLEAN CATCH; CRYSTALS, URINE NONE SEEN (0-1+); EPITHELIAL CELLS, URINE SQUAMOUS 1+ /lpf (0-1+); RED BLOOD CELLS, URINE 0-1 /hpf (0-5); REFLEX CULTURE, URINE No (No); WHITE BLOOD CELLS, URINE 0-1 /HPF (0-5)
[2025-02-07] MEDS ORDERED: ZITHROMAX250 MG PO (15:39)
[2025-02-07] MEDS ORDERED: AZITHROMYCIN 250 MG TAB PO ONE (15:45)
[2025-02-07 15:46] VITALS: BP 132/69
--- NOTE | 2025-02-07 21:37 | EKG ---
[facility] [address] [place] [address] Signed Sinus tachycardia with premature atrial complexes Right bundle branch block Abnormal ECG When compared with ECG of 25-OCT-2023 08:53, premature atrial complexes are now present Confirmed by Carlos Nunez MD () on 02/07/2025 9:37:40 PM Electronically Signed By: CARLOS NUNEZ MD 02/07/25 2137 PATIENT NAME: ROMERO CHRISTIE AGUSTO Electrocardiogram DATE OF : 55 PHYSICIAN: CARLOS NUNEZ MD REPORT #: [id number] REPORT IS CONFIDENTIAL AND NOT TO BE RELEASED WITHOUT AUTHORIZATION
== END 2025-02-07 15:46 | disposition home or self-care (01) ==
LOC: ED 11:05
PROVIDERS: Emergency Medicine
DX: R06.02 Shortness of breath (principal); I10 Essential (primary) hypertension; E11.9 Type 2 diabetes mellitus without complications; Z79.84 Long term (current) use of oral hypoglycemic drugs; Z79.52 Long term (current) use of systemic steroids; Z79.51 Long term (current) use of inhaled steroids; Z79.899 Other long term (current) drug therapy; Z79.4 Long term (current) use of insulin
CPT/HCPCS: 36415; 71045; 80053; 81001; 83880; 84484; 85025; 93005; 93010; 94640; 99285-25

== ENCOUNTER 2025-04-19 14:01 | Emergency (ER) | payer OTHER, MEDICARE ==
[~2025-04-19] VITALS: Ht 170.2 cm; Wt 74.0 kg
[~2025-04-19 14:01] MED LIST changes: +ZITHROMAX250 MG PO
[2025-04-19 20:59] LABS: BASOPHILS 0.5 % (0.2-1.2); EOSINOPHILS 0.3 % (0.8-7.0); LYMPHOCYTES 4.5 % (21.8-53.1); MCH 29.4 PG (25.7-32.2); MCHC 32.4 g/dL (32.3-36.5); MCV 90.7 fL (79.0-92.2); MONOCYTES 10.3 % (5.3-12.2); NEUTROPHILS 83.3 % (34.0-67.9); RBC 4.29 M/uL (4.63-6.08)
[2025-04-19] MEDS ORDERED: SODIUM CHLORIDE 0.9% 1,000 ML IV PRN (21:00)
[2025-04-19 21:05] LABS: INR 1.2 (0.80-1.30); PROTIME 14.4 Sec (11.2-14.2)
[2025-04-19 21:09] LABS: ALT (SGPT) 68.0 U/L (14-59); AST (SGOT) 54.0 U/L (15-37); GLOMERULAR FILTRATION RATE,EST 88.0 mL/min (>60); PROTEIN, TOTAL 8.3 g/dL (6.4-8.2); UREA NITROGEN 19.0 mg/dL (7-18)
[2025-04-19 21:48] LABS: BLOOD/HGB, URINE NEGATIVE (Negative); KETONE, URINE SMALL (Negative); LEUK ESTERASE, URINE NEGATIVE (negative); NITRITE, URINE NEGATIVE (negative)
[2025-04-20] MEDS ORDERED: AZITHROMYCIN 500 MG in DEXTROSE 5% 250 ML IV ONE (02:45)
[2025-04-20] MEDS ORDERED: VANCOMYCIN HCL 2,500 MG in DEXTROSE 5% 500 ML IV ONE (02:45)
[2025-04-20] MEDS ORDERED: ALBUTEROL/IPRATROPIUM 3 ML NEB INH ONE (04:30)
[2025-04-20] MEDS ORDERED: HALOPERIDOL LACTATE 5 MG/ML VIAL IM ONE (06:45)
[2025-04-20] MEDS ORDERED: LORazepam 2 MG/ML VIAL IM ONE (06:45)
[2025-04-20] MEDS ORDERED: LACTATED RINGER'S 1,000 ML IV SCH (07:00)
[2025-04-20 08:13] VITALS: BP 153/86
--- NOTE | 2025-04-20 15:52 | EKG ---
[facility] [address] [facility] [place] [address] Signed Sinus tachycardia Right bundle branch block Abnormal ECG When compared with ECG of 07-FEB-2025 12:47, premature atrial complexes are no longer present Confirmed by Kenny العلي MD ([id number]) on 04/20/2025 3:52:30 PM Electronically Signed By: KENNY العلي MD 04/20/25 1552 PATIENT NAME: ROMERO CHRISTIE AGUSTO Electrocardiogram DATE OF : 55 PHYSICIAN: KENNY العلي MD REPORT #: [id number] REPORT IS CONFIDENTIAL AND NOT TO BE RELEASED WITHOUT AUTHORIZATION
== END 2025-04-20 08:13 | disposition short-term general hospital (02) ==
LOC: ED 14:01
PROVIDERS: Internal Medicine
DX: J18.9 Pneumonia, unspecified organism (principal); D86.0 Sarcoidosis of lung; E11.9 Type 2 diabetes mellitus without complications; I10 Essential (primary) hypertension; Z79.4 Long term (current) use of insulin; Z79.84 Long term (current) use of oral hypoglycemic drugs; Z79.899 Other long term (current) drug therapy; Z79.52 Long term (current) use of systemic steroids
CPT/HCPCS: 36415; 71045; 71260; 74177; 80053; 81003; 83605; 85025; 85610; 85730; 87040; 93005; 93010; 94640; 96365; 96366; 96367; 96375; 99285-25; J0456; J0696; J2919; J3370; J7060; J7121; Q9967